=== PATIENT | male | born 1945 | race Caucasian/White ===

== ENCOUNTER 2024-05-13 14:57 | Emergency (ER) | payer MEDICARE, OTHER ==
[2024-05-13] MEDS ORDERED: Ibuprofen 200 MG TAB ONE (16:00)
[2024-05-13] MEDS ORDERED: predniSONE 20 MG TAB ONE (16:01)
== END 2024-05-13 16:09 | disposition home or self-care (01) ==
LOC: BURERS 14:57
DX: M19.011 Primary osteoarthritis, right shoulder (principal); F17.210 Nicotine dependence, cigarettes, uncomplicated
CPT/HCPCS: 99283; J7512